=== PATIENT | male | born 1960 | race Hispanic/Latino ===

== ENCOUNTER 2018-07-01 08:44 | Inpatient (IN) | payer BC ==
[~2018-07-01] VITALS: Ht 157.5 cm; Wt 74.4 kg
[2018-07-01] MEDS ORDERED: ONDANSETRON HCL INJ 2 MG/ML VIAL IV STA (08:45)
[2018-07-01] MEDS ORDERED: MORPHINE SULFATE 2 MG/ML SYR ONE (09:03)
[2018-07-01] MEDS: MORPHINE SULFATE 5 MG/ML VIAL IV ONE ×2 (09:13→09:17)
[2018-07-01] MEDS ORDERED: MORPHINE SULFATE 2 MG/ML SYR IV NR (09:15)
--- NOTE | 2018-07-01 10:29 | Diagnostic Imaging Report ---
History: Fell off ladder today Comparison studies: None Technique: Axial images were obtained from the skull base to the vertex. Coronal and sagittal reconstructions obtained from the axial data. Dose modulation, iterative reconstruction, and/or weight based adjustment of the mA/kV was utilized to reduce the radiation dose to as low as reasonably achievable. Findings: Scalp/skull: No abnormalities. No fractures, blastic or lytic lesions. Extra-axial spaces: No masses. No fluid collections. Brain sulci: Appropriate for age. Ventricles: Normal in size and configuration. No hydrocephalus. Parenchyma: Small hypodensities seen in the right striatocapsular region without significant mass effect or volume loss. No masses, hemorrhage, acute or chronic cortical vascular insults. Sellar/suprasellar region: No abnormalities Craniocervical junction: Patent foramen magnum. No Chiari one malformation. Atherosclerotic calcifications of the carotid siphons and left vertebral artery. 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 No traumatic intracranial abnormalities . Signed by: DR Derian Keating M.D. on 07/01/2018 10:25 AM
--- NOTE | 2018-07-01 10:49 | Diagnostic Imaging Report ---
ADDENDUM #1 Dose modulation, iterative reconstruction, and/or weight based adjustment of the mA/kV was utilized to reduce the radiation dose to as low as reasonably achievable. Signed by: DR Derian Keating M.D. on 07/19/2018 10:24 AM ORIGINAL REPORT History: Fell off ladder Comparison studies: None Technique: Axial images were obtained through the cervical region.. Coronal and sagittal images reconstructed from the axial data.. Intravenous contrast: None Findings: Fractures: None. Soft tissues: No gross abnormalities. Atlantoaxial articulation: Mild degenerative changes without acute abnormality. Alignment: Straightening of lordosis. No scoliosis. Cervicomedullary junction: No abnormalities. The foramen magnum is patent. Vertebrae: No infection or neoplasm. Degenerative changes: Decreased intervertebral space with endplate sclerotic changes at a 4-5. Uncinate process hypertrophy and facet hypertrophy results in mild bilateral foraminal narrowing at C3-4 and C5-6. Atherosclerotic calcifications of the carotid siphons and left bulb. IMPRESSION: 1. No acute cervical spine abnormalities. 2. Cannot exclude ligament, spinal cord and or vascular abnormalities on the basis of this examination. Signed by: DR Derian Keating M.D. on 07/01/2018 11:00 AM
--- NOTE | 2018-07-01 11:26 | Diagnostic Imaging Report ---
ELBOW RIGHT COMPLETE, SHOULDER RIGHT COMPLETE, HUMERUS RIGHT 2+VIEWS, FOREARM RIGHT 2 VIEW HISTORY: Fall off ladder. COMPARISON: None available. FINDINGS: Bones: Comminuted displaced fracture of the proximal ulna. Questionable radial head and condylar fractures. Osseous alignment is within normal limits. Joints: The joint spaces are well-maintained. Soft tissues: Soft tissue swelling of the elbow. IMPRESSION: Comminuted fracture of the proximal ulna. Questionable radial head and condylar fractures. Consider CT without contrast for further evaluation. Signed by: DR. Young Yusuf MD on 07/01/2018 11:23 AM
--- NOTE | 2018-07-01 11:35 | Diagnostic Imaging Report ---
EXAMINATION: CHEST SINGLE (NOT PORTABLE) INDICATION: Fell off ladder. \S\[id number] \S\1050 \S\FALL COMPARISON: None FINDINGS: AP view TUBES and LINES: None. LUNGS: Lungs are well inflated. Lungs are clear. There is no evidence of pneumonia or pulmonary edema. PLEURA: No pleural effusion or pneumothorax. HEART AND MEDIASTINUM: The cardiomediastinal silhouette is unremarkable. BONES AND SOFT TISSUES: No acute osseous lesion. Soft tissues are unremarkable. UPPER ABDOMEN: No free air under the diaphragm. IMPRESSION: No acute thoracic abnormality. Signed by: DR. Young Yusuf MD on 07/01/2018 11:32 AM
[2018-07-01] MEDS ORDERED: HYDROMORPHONE 2MG/ML 2 MG/ML ML IV NR (12:15)
[2018-07-01] MEDS ORDERED: LIDOCAINE 2%/ EPINEPHRINE 20ML MDV INJ ONE (12:45)
[2018-07-01] MEDS ORDERED: LIDOCAINE 1% W/EPINEPHRINE 20 ML VIAL INJ NR (12:45)
--- NOTE | 2018-07-01 13:56 | Diagnostic Imaging Report ---
EXAM: CT elbow without contrast INDICATION: Fall, fracture. Abnormal radiograph. \S\fall, need axial, coronal and sagittal reconstruction \S\[id number] \S\1310 COMPARISON: Same day elbow radiographs. TECHNIQUE: Right elbow was scanned utilizing a multidetector helical scanner without intravenous contrast. Coronal and sagittal reformations were obtained. IV CONTRAST: None COMPLICATIONS: None RADIATION DOSE: Total DLP: 400.9 mGy*cm CTDIvol has been reviewed. It is below the limits set by the Radiation Protocol Committee (RPC). FINDINGS: BONES: Comminuted displaced fractures of the proximal ulna with intra-articular extension. The radial head and condyles appear intact. SOFT TISSUES: Soft tissue swelling and subcutaneous emphysema of the elbow . IMPRESSION: Comminuted displaced fractures of the proximal ulna with intra-articular extension. The radial head and condyles appear intact. Signed by: DR. Young Yusuf MD on 07/01/2018 1:53 PM
[2018-07-01] MEDS ORDERED: TETANUS/DIPHTHERIA TOX ADULT 0.5 ML SYR ONE (15:30)
[2018-07-01] MEDS ORDERED: CEFAZOLIN SOD 1 GM/D5W 50ML 50 ML IV ONE (15:30)
[2018-07-01] MEDS ORDERED: TETANUS/DIPHTHERIA TOX ADULT 0.5 ML SYR IM ONE (15:30)
[2018-07-01] MEDS ORDERED: HYDROMORPHONE 1MG/1ML INJ IV PRN (15:45)
[2018-07-01] MEDS ORDERED: METFORMIN HCL1000 MG PO (16:36)
[2018-07-01] MEDS ORDERED: LOW DOSE ASPIRI81 MG PO (16:36)
[2018-07-01] MEDS ORDERED: LOSARTAN/HCT PO (16:36)
[2018-07-01] MEDS ORDERED: JANUVIA50 MG PO (16:36)
[2018-07-01] MEDS ORDERED: SIMVASTATIN20 MG PO (16:37)
[2018-07-01 17:17] VITALS: BP 145/71
[2018-07-01 18:23] VITALS: BP 145/71
[2018-07-01] MEDS ORDERED: DEXTROSE 50% SYRINGE 50 ML IV PRN (19:00)
[2018-07-01 19:15] VITALS: BP 158/74
[2018-07-01] MEDS: METFORMIN HCL 500 MG TAB CR PO SCH (19:30)
[2018-07-01] MEDS: INSULIN LISPRO 100 UNIT/1 ML 3ML VIAL SQ SCH ×2 (19:30→21:00)
[2018-07-01] MEDS: SITAGLIPTIN 100 MG TAB PO SCH (19:30)
[2018-07-01 20:00] VITALS: BP 158/74
[2018-07-01] MEDS: ONDANSETRON HCL INJ 2 MG/ML VIAL IV PRN (20:16)
[2018-07-01] MEDS: MORPHINE SULFATE 2 MG/ML SYR IV PRN (20:16)
[2018-07-01] MEDS ORDERED: CEFAZOLIN SOD 1 GM VIAL ONE (20:30)
[2018-07-01] MEDS: SIMVASTATIN 20 MG TAB PO SCH (21:33)
[2018-07-01] MEDS ORDERED: CEFAZOLIN SOD 1 GM/D5W 50ML 50 ML IV SCH (22:00)
[2018-07-01] MEDS: CEFAZOLIN SOD 1 GM in WATER STERILE 10ML VIAL 10 ML IV SCH (22:06)
[2018-07-02] VITALS (8 sets, daily range): BP systolic 113–143; BP diastolic 60–76
[2018-07-02] MEDS ORDERED: CEFAZOLIN SOD 1 GM VIAL IV SCH (01:00)
[2018-07-02] MEDS: SODIUM CHLORIDE 0.9% 1000ML 1,000 ML IV SCH ×6 (01:13→20:36)
[2018-07-02] MEDS: ONDANSETRON HCL INJ 2 MG/ML VIAL IV PRN ×2 (01:35→06:10)
[2018-07-02] MEDS: MORPHINE SULFATE 2 MG/ML SYR IV PRN ×2 (01:40→06:16)
[2018-07-02] MEDS ORDERED: CEFAZOLIN SOD 1 GM VIAL ONE (04:52)
[2018-07-02] MEDS: CEFAZOLIN SOD 1 GM in WATER STERILE 10ML VIAL 10 ML IV SCH (05:31)
[2018-07-02] MEDS ORDERED: BUPIVACAINE 0.5%/EPI 30 ML SDV INJ ONE (07:04)
[2018-07-02] MEDS ORDERED: BACITRACIN 50,000 UNIT VIAL ONE (07:04)
[2018-07-02] MEDS: INSULIN LISPRO 100 UNIT/1 ML 3ML VIAL SQ SCH ×4 (07:30→20:45)
[2018-07-02] MEDS ORDERED: CEFAZOLIN SOD 2 GM in WATER STERILE 10ML VIAL 10 ML IV SCH (08:00)
[2018-07-02] MEDS ORDERED: ACETAMINOPHEN 1000 MG/100 ML IV PRN (10:15)
[2018-07-02] MEDS ORDERED: ONDANSETRON HCL INJ 2 MG/ML VIAL IV PRN (10:15)
[2018-07-02] MEDS ORDERED: HYDROMORPHONE 0.2MG/ML-SOD CHL 30ML PCA SYRINGE IV PRN (10:15)
[2018-07-02] MEDS ORDERED: NALOXONE HCL INJ 0.4 MG/ML AMP IV PRN (10:15)
[2018-07-02] MEDS ORDERED: FENTANYL CITRATE/PF 100MCG/2 ML INJ ONE ×2 (10:39→13:54)
[2018-07-02] MEDS: METFORMIN HCL 500 MG TAB CR PO SCH (11:35)
[2018-07-02] MEDS: SITAGLIPTIN 100 MG TAB PO SCH (11:35)
[2018-07-02 11:43] LABS: BASOPHILS # (AUTO) 0.1 (0.0-0.1); BASOPHILS % 0.4 % (0.0-1.0); EOSINOPHILS # (AUTO) 0.1 (0.0-0.4); EOSINOPHILS % 0.9 % (0.0-6.0); HEMATOCRIT 36.9 % (38.2-49.6); HEMOGLOBIN 12.5 g/dL (14.0-18.0); LYMPHOCYTES # (AUTO) 1.1 (1.0-3.2); LYMPHOCYTES % 8.9 % (18.0-39.1); MEAN CORPUSCULAR HEMOGLOBIN 32.5 pg (28-32); MEAN CORPUSCULAR HGB CONC 33.9 g/dL (31-35); MEAN CORPUSCULAR VOLUME 95.8 fL (81-99); MONOCYTES # (AUTO) 0.6 (0.2-0.8); NEUTROPHILS # (AUTO) 10.4 (2.1-6.9); NEUTROPHILS % 84.2 % (38.7-80.0); PLATELET COUNT 195 x10e3/uL (140-360); RED BLOOD COUNT 3.85 x10e6/uL (4.3-5.7)
[2018-07-02 12:02] LABS: ANION GAP 10.8 mmol/L (8-16); CALCIUM 9.3 mg/dL (8.4-10.2); CHOL/HDL RATIO 4.1 (3.9-4.7); CREATININE, SERUM 1.46 mg/dL (0.72-1.25); POTASSIUM 3.8 mmol/L (3.5-5.1)
[2018-07-02] MEDS ORDERED: KETOROLAC TROMETHAMINE 30 MG/ML VIAL ONE (13:45)
[2018-07-02] MEDS ORDERED: SEVOFLURANE INHAL SOLN 250 ML PEN BTL ONE (13:45)
[2018-07-02] MEDS ORDERED: ROCURONIUM BROMIDE 10 MG/ML 5ML VIAL ONE (13:45)
[2018-07-02] MEDS ORDERED: LIDOCAINE HCL 2% LOCAL INJ 5 ML SDV VIAL INJ ONE (13:45)
[2018-07-02] MEDS ORDERED: ACETAMINOPHEN 1000 MG/100 ML IV ONE (13:45)
[2018-07-02] MEDS ORDERED: ONDANSETRON HCL INJ 2 MG/ML VIAL ONE (13:45)
[2018-07-02] MEDS ORDERED: DEXAMETHASONE SOD PHOS INJ 4 MG/ML VIAL ONE (13:45)
[2018-07-02] MEDS ORDERED: PROPOFOL IV EMULSION 10 MG/ML 20 ML VIAL ONE (13:45)
[2018-07-02] MEDS ORDERED: EPHEDRINE SULFATE INJ 50 MG/10 ML SYR ONE (13:45)
[2018-07-02] MEDS ORDERED: MIDAZOLAM HCL 2 MG/2 ML VIAL ONE (13:54)
[2018-07-02] MEDS ORDERED: CEFAZOLIN SOD 1 GM/D5W 50ML 50 ML IV SCH (14:00)
[2018-07-02] MEDS: CEFAZOLIN SOD 1 GM VIAL IV SCH ×2 (14:05→21:27)
[2018-07-02] MEDS: SIMVASTATIN 20 MG TAB PO SCH (21:18)
[2018-07-03 00:28] VITALS: BP 114/59
[2018-07-03 04:00] VITALS: BP 162/83
[2018-07-03] MEDS: CEFAZOLIN SOD 1 GM VIAL IV SCH (05:22)
[2018-07-03] MEDS: SODIUM CHLORIDE 0.9% 1000ML 1,000 ML IV SCH (06:07)
[2018-07-03 07:29] VITALS: BP 171/80
[2018-07-03] MEDS: INSULIN LISPRO 100 UNIT/1 ML 3ML VIAL SQ SCH ×2 (07:30→12:10)
[2018-07-03] MEDS: METFORMIN HCL 500 MG TAB CR PO SCH (08:44)
[2018-07-03] MEDS: SITAGLIPTIN 100 MG TAB PO SCH (08:44)
[2018-07-03] MEDS ORDERED: LABETALOL HCL 100 MG TAB PO SCH (09:00)
[2018-07-03 09:39] LABS: BASOPHILS % 0.4 % (0.0-1.0); EOSINOPHILS # (AUTO) 0.2 (0.0-0.4); EOSINOPHILS % 2.1 % (0.0-6.0); HEMATOCRIT 31.8 % (38.2-49.6); HEMOGLOBIN 10.9 g/dL (14.0-18.0); LYMPHOCYTES # (AUTO) 2.1 (1.0-3.2); LYMPHOCYTES % 20.1 % (18.0-39.1); MEAN CORPUSCULAR HEMOGLOBIN 32.8 pg (28-32); MEAN CORPUSCULAR HGB CONC 34.3 g/dL (31-35); MEAN CORPUSCULAR VOLUME 95.8 fL (81-99); MONOCYTES % 9.5 % (4.4-11.3); NEUTROPHILS % 67.2 % (38.7-80.0); PLATELET COUNT 194 x10e3/uL (140-360); RED BLOOD COUNT 3.32 x10e6/uL (4.3-5.7); RED CELL DISTRIBUTION WIDTH 12.4 % (11.7-14.4)
[2018-07-03 10:02] LABS: ANION GAP 7.4 mmol/L (8-16); BLOOD UREA NITROGEN 17 mg/dL (7-26); BUN/CREATININE RATIO 19 (6-25); CARBON DIOXIDE 27 mmol/L (22-29); CHLORIDE 102 mmol/L (98-107); CREATININE, SERUM 0.89 mg/dL (0.72-1.25); EST GLOMERULAR FILTRATION RATE > 60 ML/MIN (60-); GLUCOSE 184 mg/dL (74-118); POTASSIUM 3.4 mmol/L (3.5-5.1); SODIUM 133 mmol/L (136-145)
[2018-07-03 10:11] LABS: CALCIUM 9.7 mg/dL (8.4-10.2)
[2018-07-03 11:25] VITALS: BP 150/78
[2018-07-03 11:44] VITALS: BP 103/58
[2018-07-03] MEDS ORDERED: KEFLEX500 MG PO (13:21)
[2018-07-03] MEDS ORDERED: TYLENOL WITH C1 EACH PO (13:21)
[2018-07-03 15:28] VITALS: BP 132/63
--- NOTE | 2018-07-04 11:25 | Operative Report ---
DATE OF PROCEDURE: July 02, 2018 PREOPERATIVE DIAGNOSIS: Grade-1 open right olecranon fracture. POSTOPERATIVE DIAGNOSIS: Grade-1 open right olecranon fracture. PROCEDURES PERFORMED 1. Irrigation and debridement of the grade-1 open olecranon fracture. 2. Plate fixation of a comminuted right olecranon fracture. SLOPE HOIST OPERATOR: None. ANESTHESIA: General endotracheal intubation anesthesia. IV FLUIDS: Per the anesthesia record. DESCRIPTION OF PROCEDURE: Mr. Rivera was taken to the operating room and placed in supine position on the operating table. Following induction of general anesthesia as well as endotracheal intubation, he was turned to a lateral position with the right side up. He was held in place with a well-padded dao bag, and an axillary roll was placed under the left chest wall. His bilateral lower extremities were also well-padded at this time. Examination of the patient's right elbow demonstrated swelling and bruising about the elbow joint. There was a small puncture wound less than 1 cm in width over the lateral elbow. The patient's upper extremity was prepped and draped in the standard surgical fashion. The case was begun by extending the opening in the soft tissues both proximally and distally. The area was debrided with sharp dissection and irrigated thoroughly with a 3-liter bag of Bacitracin-laden normal saline followed by a second 3-liter bag of regular normal saline in a pulse lavage fashion. Once this was completed, this wound was closed in a single-layer fashion. A curvilinear incision was then created over the olecranon process. This incision was carried through the skin only. Blunt dissection was used to deepen the incision, and the patient's fracture site was easily identified. Combinations of sharp and blunt dissection were used to elevate the soft tissues about the fracture site. The patient was found to have a comminuted intra-articular fracture of the olecranon process. Combinations of sharp and blunt dissection were used to isolate the patient's fracture site. The comminuted portion of the fracture site was reduced including a large segment of the articular surface. The overlying cortical portion of the fracture was then reduced, and a plate was chosen and placed over the patient's fracture site. The plate was then affixed to the proximal ulna with combinations of cortical and locking screws. Fluoroscopic evaluation was then used to evaluate the reduction of the injury as well as the re-establishment of the articular surface of the olecranon. This was found to be appropriate. The wound was again irrigated thoroughly and closed in a multilayer fashion. Sterile dressings were applied as well as a well-padded posterior splint. The patient was then awakened and taken to postanesthesia care unit in stable condition. Job#: [id number]
--- NOTE | 2018-07-04 19:49 | Discharge Summary ---
PRINCIPAL DIAGNOSES: 1. Fall with right olecranon fracture. 2. Normocytic anemia. 3. Acute kidney injury. 4. Right hand pain. 5. Uncontrolled diabetes mellitus. Hemoglobin A1c 10.3, LDL 108. SECONDARY DIAGNOSIS: Diabetes mellitus. CHIEF COMPLAINT: Fall. HISTORY OF PRESENT ILLNESS: Please refer to H and P for further details. HOSPITAL COURSE: Patient had a fall with right hand fracture, underwent surgery. Quickly discharged home with plan for continued care outpatient. He had acute kidney injury, which quickly resolved. He had uncontrolled diabetes, hemoglobin A1c 10.3, LDL 108. He needs followup outpatient with his primary care doctor for closer management. Patient is currently appropriate for discharge. Will follow up. DISCHARGE MEDICATIONS: Per electronic medical record. FOLLOWUP: With: 1. Primary care doctor in 1 week. 2. Surgery as directed. MANNIE CLARK MD Job#: [id number]
--- NOTE | 2018-07-04 21:01 | History and Physical ---
TIME OF SERVICE: 7 a.m. PRIMARY CARE PHYSICIAN: Dr. Richards. CHIEF COMPLAINT: Fall with right arm injury. HISTORY OF PRESENT ILLNESS: This is a 57-year-old man with a history of diabetes mellitus who had a fall. He tripped over a rug resulting in trauma to his right hand, found to have fracture of the ulna and admitted for further evaluation and management. PAST MEDICAL HISTORY: Diabetes mellitus, hypertension. PAST SURGICAL HISTORY: None. ALLERGIES: PER ELECTRONIC MEDICAL RECORDS. FAMILY/SOCIAL HISTORY: The patient is . He has 3 children. Occasional alcohol. No cigarettes or illicits. MEDICATIONS: Per electronic medical records. REVIEW OF SYSTEMS: Denies any dizziness, chest pain, shortness of breath, fever or chills or sweats, no nausea, vomiting or diarrhea. PHYSICAL EXAMINATION: Deferred since the patient is in surgery. LABS: Reviewed. MEDICATIONS: Reviewed. ASSESSMENT: This is a 57-year-old man. 1. Fall. 2. Comminuted fracture of the proximal ulna on the right hand. 3. Normocytic anemia. 4. Acute kidney injury. 5. Right hand pain. PLAN: 1. Surgery is in progress. 2. Obtain hemoglobin and obtain lipid panel. 3. Pain control. 4. IV fluids and reassess renal function. 5. Follow up hemoglobin. 6. SCDs. DISPOSITION: Discharge planning once out from surgery. Job#: [id number]
--- OUTSIDE RECORDS SUMMARY | 2018-07-11 11:19 | XMS REPORT ---
Author Author [facility] Address Unknown Phone Unavailable Care Team Providers Care Mixing Picker Tender Name Role Phone Arthur NGUYEN Unavailable Unavailable Problems This patient has no known problems. Allergies, Adverse Reactions, Alerts This patient has no known allergies or adverse reactions. Medications This patient has no known medications. Results Test Description Test Time Test Comments Text Results Atomic Results Result Comments CT ELBOW LEFT WO 2018-07-01 13:45:00 [place] [address] Patient Name: JOHANNA REYES MR #: [id number] : 1960 Age/Sex: 57/M Req #: [id number] Adm Physician: Ordered by: JOHAN NGUYEN MD Report #: [id number] Location: ER Room/Bed: Procedure: [id number] CT/CT ELBOW LEFT WO Exam Date: 07/01/18 Exam Time: 1310 REPORT STATUS: Signed EXAM: CT elbow without contrast INDICATION: Fall, fracture. Abnormal radiograph. COMPARISON: Same day elbow radiographs. TECHNIQUE: Right elbow was scanned utilizing a multidetector helical scanner without intravenous contrast. Coronal and sagittal reformations were obtained. IV CONTRAST: None COMPLICATIONS: None RADIATION DOSE: Total DLP: 400.9 mGy*cm CTDIvol has been reviewed. It is below the limits set by the Radiation Protocol Committee (RPC). FINDINGS: BONES: Comminuted displaced fractures of the proximal ulna with intra-articular extension. The radial head and condyles appear intact. SOFT TISSUES: Soft tissue swelling and subcutaneous emphysema of the elbow . IMPRESSION: Comminuted displaced fractures of the proximal ulna with intra- articular extension. The radial head and condyles appear intact. Signed by: DR. Young Bello MD on 07/01/2018 1:53 PM Dictated By: YOUNG BELLO MD 1353 Transcribed By: DONALD on 07/01/18 1353 COPY TO: JOHAN NGUYEN MD CHEST SINGLE (NOT PORTABLE) 2018-07-01 11:30:00 [place] [address] Patient Name: JOHANNA REYES MR #: [id number] : 1960 Age/Sex: 57/M Req #: [id number] Adm Physician: Ordered by: JOHAN NGUYEN MD Report #: [id number] Location: ER Room/Bed: Procedure: [id number] DX/CHEST SINGLE (NOT PORTABLE) Exam Date: 07/01/18 Exam Time: 1050 REPORT STATUS: Signed EXAMINATION: CHEST SINGLE (NOT PORTABLE) INDICATION: Fell off ladder. COMPARISON: None FINDINGS: AP view TUBES and LINES: None. LUNGS: Lungs are well inflated. Lungs are clear. There is no evidence of pneumonia or pulmonary edema. PLEURA: No pleural effusion or pneumothorax. HEART AND MEDIASTINUM: The cardiomediastinal silhouette is unremarkable. BONES AND SOFT TISSUES: No acute osseous lesion. Soft tissues are unremarkable. UPPER ABDOMEN: No free air under the diaphragm. IMPRESSION: No acute thoracic abnormality. Signed by: DR. Young Bello MD on 07/01/2018 11:32 AM Dictated By: YOUNG BELLO MD 1132 Transcribed By: DONALD on 07/01/18 1132 COPY TO: JOHAN NGUYEN MD FOREARM RIGHT 2 VIEW 2018-07-01 11:16:00 [facility] [address] [place] [address] Patient Name: JHOANNA REYES MR #: [id number] : 1960 Age/Sex: 57/M Req #: [id number] Adm Physician: Ordered by: JOHAN NGUYEN MD Report #: [id number] Location: ER Room/Bed: Procedure: [id number] DX/FOREARM RIGHT 2 VIEW Exam Date: 07/01/18 Exam Time: 1050 REPORT STATUS: Signed ELBOW RIGHT COMPLETE, SHOULDER RIGHT COMPLETE, HUMERUS RIGHT 2+VIEWS, FOREARM RIGHT 2 VIEW HISTORY: Fall off ladder. COMPARISON: None available. FINDINGS: Bones: Comminuted displaced fracture of the proximal ulna. Questionable radial head and condylar fractures. Osseous alignment is within normal limits. Joints: The joint spaces are well- maintained. Soft tissues: Soft tissue swelling of the elbow. IMPRESSION: Comminuted fracture of the proximal ulna. Questionable radial head and condylar fractures. Consider CT without contrast for further evaluation. Signed by: DR. Young Bello MD on 07/01/2018 11:23 AM Dictated By: YOUNG BELLO MD 1123 Transcribed By: DONALD on 07/01/18 1123 COPY TO: JOHAN NGUYEN MD HUMERUS RIGHT 2+VIEWS 2018-07-01 11:16:00 [facility] [address] [place], [place] [address] Patient Name: JOHANNA REYES MR #: [id number] : 1960 Age/Sex: 57/M Req #: [id number] Adm Physician: Ordered by: JOHAN NGUYEN MD Report #: [id number] Location: ER Room/Bed: Procedure: [id number] DX/HUMERUS RIGHT 2+VIEWS Exam Date: 07/01/18 Exam Time: 1050 REPORT STATUS: Signed ELBOW RIGHT COMPLETE, SHOULDER RIGHT COMPLETE, HUMERUS RIGHT 2+VIEWS, FOREARM RIGHT 2 VIEW HISTORY: Fall off ladder. COMPARISON: None available. FINDINGS: Bones: Comminuted displaced fracture of the proximal ulna. Questionable radial head and condylar fractures. Osseous alignment is within normal limits. Joints: The joint spaces are well- maintained. Soft tissues: Soft tissue swelling of the elbow. IMPRESSION: Comminuted fracture of the proximal ulna. Questionable radial head and condylar fractures. Consider CT without contrast for further evaluation. Signed by: DR. Young Bello MD on 07/01/2018 11:23 AM Dictated By: YOUNG BELLO MD 1123 Transcribed By: DONALD on 07/01/18 1123 COPY TO: JOHAN NGUYEN MD SHOULDER RIGHT COMPLETE 2018-07-01 11:16:[address] [address] Patient Name: JOHANNA REYES MR #: [id number] : 1960 Age/Sex: 57/M Req #: [id number] Adm Physician: Ordered by: JOHAN NGUYEN MD Report #: [id number] Location: ER Room/Bed: Procedure: [id number] DX/SHOULDER RIGHT COMPLETE Exam Date: 07/01/18 Exam Time: 1050 REPORT STATUS: Signed ELBOW RIGHT COMPLETE, SHOULDER RIGHT COMPLETE, HUMERUS RIGHT 2+VIEWS, FOREARM RIGHT 2 VIEW HISTORY: Fall off ladder. COMPARISON: None available. FINDINGS: Bones: Comminuted displaced fracture of the proximal ulna. Questionable radial head and condylar fractures. Osseous alignment is within normal limits. Joints: The joint spaces are well- maintained. Soft tissues: Soft tissue swelling of the elbow. IMPRESSION: Comminuted fracture of the proximal ulna. Questionable radial head and condylar fractures. Consider CT without contrast for further evaluation. Signed by: DR. Young Bello MD on 07/01/2018 11:23 AM Dictated By: YOUNG BELLO MD 22 Transcribed By: DONALD on 07/01/181122 COPY TO: JOHAN NGUYEN MD ELBOW RIGHT COMPLETE 2018-07-01 11:16:00 [place] [address] Patient Name: JOHANNA REYES MR #: [id number] : 1960 Age/Sex: 57/M Req #: [id number] Adm Physician: Ordered by: JOHAN NGUYEN MD Report #: [id number] Location: ER Room/Bed: Procedure: [id number] DX/ELBOW RIGHT COMPLETE Exam Date: 07/01/18 Exam Time: 1050 REPORT STATUS: Signed ELBOW RIGHT COMPLETE, SHOULDER RIGHT COMPLETE, HUMERUS RIGHT 2+VIEWS, FOREARM RIGHT 2 VIEW HISTORY: Fall off ladder. COMPARISON: None available. FINDINGS: Bones: Comminuted displaced fracture of the proximal ulna. Questionable radial head and condylar fractures. Osseous alignment is within normal limits. Joints: The joint spaces are well- maintained. Soft tissues: Soft tissue swelling of the elbow. IMPRESSION: Comminuted fracture of the proximal ulna. Questionable radial head and condylar fractures. Consider CT without contrast for further evaluation. Signed by: DR. Young Bello MD on 07/01/2018 11:23 AM Dictated By: YOUNG BELLO MD 1123 Transcribed By: DONALD on 07/01/18 1123 COPY TO: JOHAN NGUYEN MD CT CERVICAL SPINE WO 2018-07-01 10:26:00 [place] [address] Patient Name: JOHANNA REYES MR #: [id number] : 1960 Age/Sex: 57/M Req #: [id number] Adm Physician: Ordered by: JOHAN NGUYEN MD Report #: [id number] Location: ER Room/Bed: Procedure: [id number] CT/CT CERVICAL SPINE WO Exam Date: Exam Time: REPORT STATUS: Signed History: Fell off ladder Comparison studies: None Technique: Axial images were obtained through the cervical region.. Coronal and sagittal images reconstructed from the axial data.. Intravenous contrast: None Findings: Fractures: None. Soft tissues: No gross abnormalities. Atlantoaxial articulation: Mild degenerative changes without acute abnormality. Alignment: Straightening of lordosis. No scoliosis. Cervicomedullary junction: No abnormalities. The foramen magnum is patent. Vertebrae: No infection or neoplasm. Degenerative changes: Decreased intervertebral space with endplate sclerotic changes at a 4-5. Uncinate process hypertrophy and facet hypertrophy results in mild bilateral foraminal narrowing at C3-4 and C5-6. Atherosclerotic calcifications of the carotid siphons and left bulb. IMPRESSION: 1. No acute cervical spine abnormalities. 2. Cannot exclude ligament, spinal cord and or vascular abnormalities on the basis of this examination. Signed by: DR Derian Keating M.D. on 07/01/2018 11:00 AM Dictated By: DERIAN GRAY MD 1100 Transcribed By: DONALD on 07/01/18 1100 COPY TO: JOHAN NGUYEN MD CT BRAIN WO 2018-07-01 10:20:00 [place] [address] Patient Name: JOHANNA REYES MR #: [id number] : 1960 Age/Sex: 57/M Req #: [id number] Adm Physician: Ordered by: JOHAN NGUYEN MD Report #: [id number] Location: ER Room/Bed: Procedure: [id number] CT/CT BRAIN WO Exam Date: Exam Time: REPORT STATUS: Signed History: Fell off ladder today Comparison studies: None Technique: Axial images were obtained from the skull base to the vertex. Coronal and sagittal reconstructions obtained from the axial data. Dose modulation, iterative reconstruction, and/or weight based adjustment of the mA/kV was utilized to reduce the radiation dose to as low as reasonably achievable. Findings: Scalp/skull: No abnormalities. No fractures, blastic or lytic lesions. Extra-axial spaces: No masses. No fluid collections. Brain sulci: Appropriate for age. Ventricles: Normal in size and configuration. No hydrocephalus. Parenchyma: Small hypodensities seen in the right striatocapsular region without significant mass effect or volume loss. No masses, hemorrhage, acute or chronic cortical vascular insults. Sellar/suprasellar region: No abnormalities Craniocervical junction: Patent foramen magnum. No Chiari one malformation. Atherosclerotic calcifications of the carotid siphons and left vertebral artery. 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 No traumatic intracranial abnormalities . Signed by: DR Derian Keating M.D. on 07/01/2018 10:25 AM Dictated By: DERIAN GRAY MD 1025 Transcribed By: DONALD on 07/01/18 1025 COPY TO: JOHAN NGUYEN MD
== END 2018-07-03 15:40 | disposition home or self-care (01) | DRG 511 ==
LOC: ER 08:44 → ERHOLD 15:44 → MED/SURG 17:08 → OBSVTOIN 07-02 10:09 → INTOOBSV 07-02 10:09
PROVIDERS: ADMIT Internal Medicine; ATTEND Internal Medicine
PROC: 0HQDXZZ Repair Right Lower Arm Skin, External Approach (ICD-10-PCS; 2018-07-02)
PROC: 0PSK04Z Reposition Right Ulna with Internal Fixation Device, Open Approach (ICD-10-PCS; principal; 2018-07-02 08:00)
DX: S52.031B Displaced fracture of olecranon process with intraarticular extension of right ulna, initial encounter for open fracture type I or II (principal); N17.9 Acute kidney failure, unspecified; W11.XXXA Fall on and from ladder, initial encounter; Y93.89 Activity, other specified; I10 Essential (primary) hypertension; D64.9 Anemia, unspecified; Z79.84 Long term (current) use of oral hypoglycemic drugs; Z88.6 Allergy status to analgesic agent; E11.65 Type 2 diabetes mellitus with hyperglycemia
CPT/HCPCS: 36415; 70450; 71045; 72125; 76001; 80048; 80061; 82947; 82948; 83036; 85025; 90471; 90714; 96372; 99285; C1713; G0378; J0690; J1100; J1885; J2001; J2250; J2270; J2405; J7030